=== PATIENT | female | born 2000 | race Caucasian/White ===

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

== ENCOUNTER → 2022-01-02 11:33 | Outpatient (CLI) | payer OTHER, SELFPAY ==
--- NOTE | 2022-01-02 11:52 | XR_ITS ---
FINAL REPORT TECHNIQUE: 50 mL of Isovue-370 were administered intravenously. CLINICAL HISTORY: Pain Rt Side, hydronephrosis, Kidney Stones, 21 wk FINDINGS: Limited examination was obtained after direct discussion with the referring physician. Patient is known to be . Water Trainer view of the abdomen demonstrates a 0.7 cm ovoid density immediately superior to the right L2 transverse process. This focus likely represents an obstructing right UPJ stone. 2 postcontrast images were obtained. Postcontrast images demonstrate moderate to marked right hydronephrosis. Left collecting system appears unremarkable. IMPRESSION: 1. Limited examination demonstrating 7 mm obstructing stone at right UPJ with moderate to marked right hydronephrosis. Authenticated by Fede Whitfield MD on 01/02/2022 02:26:05 PM [facility]
== END ==
PROVIDERS: Visit Provider Nurse Practitioner Obstetrics & Gynecology
DX: N20.0 Calculus of kidney (principal); O26.839 Pregnancy related renal disease, unspecified trimester; Z3A.21 21 weeks gestation of pregnancy
CPT/HCPCS: 74400; Q9967

== ENCOUNTER → 2022-01-13 13:15 | Outpatient (CLI) | payer OTHER, SELFPAY ==
--- NOTE | 2022-01-13 13:26 | XR_ITS ---
FINAL REPORT CLINICAL HISTORY: RT kidney stone, 21 WEEKS FINDINGS: A single view of the abdomen was obtained. There is a nonobstructive bowel gas pattern. There are no abnormally dilated loops of small bowel. There is a moderate-large amount of retained stool. No abnormal calcification is identified. Note is made of a fetus in the pelvis and lower abdomen. IMPRESSION: Nonobstructive bowel gas pattern. Moderate-large amount of retained stool. No abnormal calcification identified. Reviewed, Interpreted and Dictated by Bay Meyer III, MD Transcribed by Monalisa Bettencourt Authenticated by Bay Meyer III, MD on 01/13/2022 02:20:38 PM [facility]
== END ==
PROVIDERS: Visit Provider Urology
DX: N20.0 Calculus of kidney (principal)
CPT/HCPCS: 74018

== ENCOUNTER 2022-02-07 23:27 | Inpatient (IN) | payer OTHER, SELFPAY ==
[2022-02-07 23:30] VITALS: RESP 18
[2022-02-07 23:38] VITALS: BMI 22.5
[2022-02-07 23:42] VITALS: BP 113/62; PULSE 82; RESP 18; TEMP 36.6; O2SAT 98; BMI 22.5
[2022-02-07 23:45] LABS: Microscopic, Urine URINE MICROSCOPIC (MICROSCOPIC)
[2022-02-07 23:47] LABS: Appearance,Urine CLOUDY (Clear); Bilirubin,Urine Negative (Negative); Blood, Urine 2+ (Negative); Color,Urine YELLOW (Yellow); Glucose,Urine (UA) Negative (Negative); Ketones,Urine Negative (Negative); Leukocyte Esterase,Urine TRACE (Negative); Nitrate,Urine Negative (Negative); Protein,Urine TRACE (Negative); Specific Gravity, Urine 1.015 (1.005-1.030); Urobilinogen,Urine 0.2 EU/dl (0.2)
[2022-02-07 23:53] LABS: Coronavirus 19, PCR Not Detected (NotDetected); Influenza A, PCR Not Detected (NotDetected); Influenza B, PCR Not Detected (NotDetected)
[2022-02-07 23:57] LABS: Bacteria,Urine 1+ /lpf; Barbiturates Screen,Urine Negative ng/ml (<200); Squamous Epithelial Cell,Urine Occasional #/hpf (0-5)
[2022-02-07 23:57] LABS: Basophils # 0.1 K/mm3 (0-0.2); Eosinophils % 0.3 % (0.1-12.0); Hemoglobin 9.4 g/dL (12.2-16.2); Lymphocytes # 1.5 K/mm3 (0.7-4.5); Lymphocytes % 12.9 % (10-50); Mean Corpuscular HGB Conc 33.5 g/dL (31.8-35.4); Mean Corpuscular Hemoglobin 29.4 pg (27.0-31.2); Mean Corpuscular Volume 87.9 fl (81-99); Monocytes # 0.6 K/mm3 (0.1-1.0); Monocytes % 5.3 % (1.7-9.3); Neutrophils # 9.2 K/mm3 (1.8-7.8); Neutrophils % 80.4 % (37.0-80.0); Platelet Count 291 K/mm3 (142-424); Red Blood Count 3.21 M/mm3 (4.20-5.40); Red Cell Distribution Width 13.4 % (11.5-17.5); White Blood Count 11.5 K/mm3 (4.5-13.0)
[2022-02-07 23:58] LABS: Amphetamine/Metha Screen,Urine Negative ng/ml (<1000); Benzodiazepines Screen,Urine Negative ng/ml (<200)
[2022-02-07 23:59] LABS: Hematocrit 28.2 % (37.0-47.0)
[2022-02-07 23:59] LABS: Cannabinoid Screen,Urine Positive ng/ml (<50)
[2022-02-08] LABS: Cocaine Screen,Urine Negative ng/ml (<300); Methadone Screen,Urine Negative ng/ml (<300)
[2022-02-08 00:01] LABS: Opiate Screen,Urine Negative ng/ml (<300)
[2022-02-08 00:02] LABS: Phencyclidine Screen,Urine Negative ng/ml (<25)
[2022-02-08 03:44] VITALS: RESP 18
--- NOTE | 2022-02-08 07:04 | US_ITS ---
PROCEDURE INFORMATION: Exam: US Retroperitoneal Complete, Kidneys Aorta IVC. Exam date and time: 02/08/2022 8:19 AM Age: 21 years old Clinical indication: Abdominal pain; Left; ; Patient HX: 26 wks preg with lt flank and back pain-- PT recently passed stone on RT side; Additional info: Renal calculi TECHNIQUE: Imaging protocol: Real-time ultrasound of the retroperitoneum with image documentation. Complete exam. COMPARISON: CR XR KUB 01/13/2022 1:41 PM FINDINGS: Right kidney: Right kidney measures 10.6 x 6.5 x 6.4 cm. Mild right hydronephrosis present without definite calcification noted within the urinary tract. Left kidney: Left kidney measures 12.1 x 5.1 x 6.3 cm. Moderate left hydronephrosis without definite calcification. IMPRESSION: 1. Mild right hydronephrosis present without definite calcification noted within the urinary tract. 2. Moderate left hydronephrosis without definite calcification.
[2022-02-08 07:34] LABS: Basophils # 0.1 K/mm3 (0-0.2); Basophils % 0.3 % (0.1-2.0); Eosinophils % 0.1 % (0.1-12.0); Hematocrit 30.4 % (37.0-47.0); Hemoglobin 10.2 g/dL (12.2-16.2); Mean Corpuscular HGB Conc 33.3 g/dL (31.8-35.4); Mean Corpuscular Hemoglobin 29.7 pg (27.0-31.2); Mean Corpuscular Volume 89.1 fl (81-99); Mean Platelet Volume 7.8 fl (7.4-10.4); Monocytes # 0.5 K/mm3 (0.1-1.0); Monocytes % 3.2 % (1.7-9.3); Neutrophils # 14.7 K/mm3 (1.8-7.8); Neutrophils % 90.4 % (37.0-80.0); Platelet Count 269 K/mm3 (142-424); Red Blood Count 3.42 M/mm3 (4.20-5.40); Red Cell Distribution Width 13.3 % (11.5-17.5); White Blood Count 16.3 K/mm3 (4.5-13.0)
[2022-02-08 07:48] LABS: MANUAL DIFFERENTIAL MANUAL DIFFERENTIAL (MANUAL DIFF)
[2022-02-08 08:13] VITALS: BP 117/70; PULSE 95; RESP 21; TEMP 36.9; O2SAT 96
--- NOTE | 2022-02-08 08:27 | HMH.PHAINT ---
MEDICATION RECONCILIATION COMPLETED ON PATIENT USING EXTERNAL FILL HISTORY FROM PHARMACY. -RAQUEL JERRY, JEANETTED
--- NOTE | 2022-02-08 08:39 | HMH.OBAPHP ---
OB - H&P: HPI Antepartum - History of Present Illness Chief complaint: Left flank pain History of present illness: Ms Marifer Casillas is a 21 yo at 26w4d with complaint of new onset, severe left flank pain. She was a transfer to Dr. Chavez from [facility] ~ 21 weeks. She has history of moderate right hydronephrosis and right nephrolithiasis ~ 22 weeks. She followed up with Dr. Nicholson. Right flank pain resolved after passage of kidney stone. She denies fever/chills, chest pain and shortness of breath. Positive nausea secondary to pain. Denies vaginal bleeding and abdominal pain. Positive movement. - History of Present Narrative: History of nephrolithiasis [facility] History Medical History: Reports:: Anxiety, Depression, Kidney Stones *Have you ever received a pneumonia vaccine?: No *Have you received a flu vaccine this season?: No Laterality Cases: Bilateral: Tonsillectomy Other Surgeries: Yes: No Previous Surgery Amputation: No Fractures: No - *Social History Smoking Status: Current every day smoker Alcohol Intake: never *Occupational Status:: other Housing: house Household Members: family *Travel in the last 8 weeks: None - Psychiatric History Pschychiatric History:: Reports:: Anxiety, Depression Family Hx:: Heart Attack : 1 Para: 0 Review of Systems - Review of Systems Review of systems:: pertinent systems reviewed and negative unless documented below - *Gastrointestinal Comments: nausea secondary to pain - *Genitourinary Comments: + left flank pain Meds Home Medications Medication Instructions Recorded Confirmed Type dicyclomine 10 mg capsule 10 mg PO Q6HP PRN cap 01/02/22 02/08/22 History hydrocodone 5 mg-acetaminophen 325 1 tab PO Q4HP PRN #20 tab 01/09/22 02/08/22 Rx mg tablet ondansetron 4 mg disintegrating 4 mg PO Q6HP PRN tab 01/09/22 02/08/22 History tablet prenat.vits,jennifer,ypd-[id number] 1 tab PO DAILY 01/09/22 02/08/22 History Allergies Allergy/AdvReac Type Severity Reaction Status Date / Time No Known Allergies Allergy Verified 01/23/22 09:34 OB - H&P: Exam - Physical Exam Vital signs: Temp Pulse Resp BP Pulse Ox 98.4 F 95 H 21 117/70 96 02/08/22 08:13 02/08/22 08:13 02/08/22 08:13 02/08/22 08:13 02/08/22 08:13 - Constitutional moderate distress - Routine HEENT Exam Head: Present: normocephalic Eye: Absent: conjunctivae pink ENT: Present: mucous membranes moist - Routine Respiratory Exam Present: CTA bilaterally - Routine Cardiovascular Exam Present: RRR - Routine Abdominal Exam Present: soft. Absent: tenderness, distended Comments: + gravid - Routine Extremities Exam Absent: cyanosis, edema, calf tenderness - Routine Back/Spine/Pelvis Exam Comments: + Left flank tenderness with light palpation - Routine Neurological Exam Present: alert, oriented X3 OB - Results - Labs Labs: Short CBC 02/07/22 02/08/22 Range/Units 23:40 06:54 WBC 11.5 16.3 H D (4.5-13.0) K/mm3 Hgb 9.4 L 10.2 L (12.2-16.2) g/dL Hct 28.2 L 30.4 L (37.0-47.0) % Plt Count 291 269 (142-424) K/mm3 Urine 02/07/22 Range/Units 23:00 Urine Color Yellow (Yellow) Urine Appearance Cloudy (Clear) Urine pH 7.0 (5.0-8.5) Ur Specific [place] 1.015 (1.005-1.030) Urine Protein Trace (Negative) Urine Glucose (UA) Negative (Negative) OB - A/P Antepartum (1) 26 weeks gestation of Status: Acute (2) Tobacco use Status: Acute (3) Left flank pain Status: Acute (4) History of nephrolithiasis Status: Acute - Additional Plan Additional Information:: Admit to L&D for pain control IV Fluids Strainer for toilet CBC UA and urine culture Renal ultrasound IV Dilaudid, will try to transition to Esko Regular diet PO Tylenol and Vistaril PRN Flomax 0.4 mg PO daily FHT q 12 hours
[2022-02-08 12:26] LABS: Lymphocytes % 5 % (10-50); Neutrophils % 95 % (42-76); Platelet Estimate Normal; Total Cells Counted 100
[2022-02-08 12:28] LABS: RBC Morphology Normal
[2022-02-08 20:00] VITALS: BP 124/69; PULSE 104; RESP 20; TEMP 36.8; O2SAT 98
[2022-02-09 04:30] VITALS: BP 122/74; PULSE 88; RESP 18; TEMP 36.7; O2SAT 98
[2022-02-09 07:13] LABS: Hepatitis B Surface Antigen Negative (Negative)
[2022-02-09 07:21] VITALS: BP 106/59; PULSE 104; RESP 16; TEMP 36.8; O2SAT 97
[2022-02-09 08:35] LABS: Rapid Plasma Reagin Ab Titer Non Reactive (NonRea<1:1); Rubella Antibodies, IgG <0.90 index (Immune >0.99)
[2022-02-09 09:11] LABS: HIV Screen 4th Generation wRfx Non Reactive (Non Reactive)
--- NOTE | 2022-02-09 12:39 | HMH.DCSUM ---
General - General Admission date:: 02/07/22 Discharge date: 02/09/22 HPI HPI: Ms Marifer Casillas is a 21 yo at 26w5d admitted to [facility] Labor and Delivery secondary to pain control for severe left flank pain and possible left kidney stone. She denies fever/chills, chest pain and shortness of breath. Admits to nausea secondary to pain. Denies vaginal bleeding and abdominal pain. Reports good movement. She was a transfer to Dr. Chavez from [facility] ~ 21 weeks. She has history of moderate right hydronephrosis and right nephrolithiasis ~ 22 weeks. She followed up with Dr. Nicholson. Right flank pain resolved after passage of kidney stone. Hospital Course Hospital Course: During hospital stay she received IV and PO pain medication, IV fluids and Flomax. Renal ultrasound was performed on 02/08/22. Nipple Threader reported she could not see a stone but gravid uterus was impairing visualization. She also reported moderate left hyronephrosis and hydroureter. Awaiting final report by radiologist. She tolerated regular diet with antiemetics. Heart tones were performed q 12 hours. Today, 02/09/22, patient states pain is manageable with PO medication. She admits pain waxes and wanes. She states she is voiding better since starting the Flomax. She is tolerating regular diet and reports good movement. She denies abdominal pain, leakage of fluid and vaginal bleeding. Denies fever/chills, chest pain and shortness of breath. Discharge patient to home with instructions to follow-up with Dr. Chavez and Dr. Nicholson this week. Prescriptions for [place], Phenergan, Vistaril and Flomax daily escribed. Patient sent home with hat for the toilet, strainer and specimen cup. Encouraged increased water intake and activity as tolerated. Objective Vital signs: Temp Pulse Resp BP Pulse Ox 98.2 F 104 H 16 106/59 L 97 02/09/22 07:21 02/09/22 07:21 02/09/22 07:21 02/09/22 07:21 02/09/22 07:21 no acute distress - *Routine HEENT Exam Head: Present: normocephalic ENT: Present: mucous membranes moist - *Routine Neck Exam Present: full ROM - *Routine Respiratory Exam Present: CTA bilaterally - *Routine Cardiovascular Exam Present: RRR - *Routine Abdominal Exam Present: soft. Absent: tenderness, distended Comments: Gravid FHR 154 - *Routine Extremities Exam Present: full ROM. Absent: cyanosis, clubbing, edema, calf tenderness - *Routine Neurological Exam Present: alert, oriented X3 Results Completed studies during hospitalization [Text1]: Bilateral renal ultrasound Labs on day of discharge: Labs from last 24 hours 02/08/22 06:54 RPR Titer Non reactive Hep Bs Antigen Negative HIV 1&2 Ag/Ab, 4th Gen Non reactive Rubella IgG Antibody <0.90 L DS: Diagnosis - Discharge Diagnosis (1) 26 weeks gestation of Status: Acute (2) Tobacco use Status: Acute (3) Left flank pain Status: Acute (4) History of nephrolithiasis Status: Chronic (5) Hydronephrosis Status: Acute Discharge Plan - Patient Discharge Instructions ACTIVITY: Continue current activity DIET: continue same diet - Follow up Plan Follow up with: Jorge Nicholson MD [Staff Physician] - Rey Chavez MD [Primary Care Provider] - Disposition: Home, Self-Care Condition at discharge:: Stable Home Medications: Home Medications Medication Instructions Recorded Confirmed Type dicyclomine 10 mg capsule 10 mg PO Q6HP PRN cap 01/02/22 02/08/22 History hydrocodone 5 mg-acetaminophen 325 1 tab PO Q4HP PRN #20 tab 01/09/22 02/08/22 Rx mg tablet ondansetron 4 mg disintegrating 4 mg PO Q6HP PRN tab 01/09/22 02/08/22 History tablet prenat.vits,jennifer,nif-[id number] 1 tab PO DAILY 01/09/22 02/08/22 History Hydrocod/Acet 5/325 mg [[place] 1 tab PO Q4HP PRN 4 Days #20 tab 02/09/22 Rx 5/325mg tablet] Promethazine HCl [Phenergan 12.5mg 12.5 mg PO Q6HP PRN #20 tab 02/09/22 Rx tablet
[2022-02-09 13:24] VITALS: BP 105/65; PULSE 100; RESP 16; TEMP 36.7
== END 2022-02-09 13:50 | disposition home or self-care (01) | DRG 832 ==
LOC: OBOUT 23:28 → OB 23:28
PROVIDERS: Admitting Provider Obstetrics & Gynecology; PCP Nurse Practitioner Obstetrics & Gynecology; Visit Provider Obstetrics & Gynecology
DX: O99.891 Other specified diseases and conditions complicating pregnancy; N13.30 Unspecified hydronephrosis; R10.9 Unspecified abdominal pain; Z3A.26 26 weeks gestation of pregnancy
CPT/HCPCS: 36415; 59025; 76770; 80305; 81001; 85007; 85025; 86592; 86762; 86850; 87340; C9803; J2405; U0003; U0005

== ENCOUNTER 2022-02-10 00:29 | Observation (INO) | payer OTHER, SELFPAY ==
[2022-02-10] VITALS (7 sets, daily range): BP systolic 106–127; BP diastolic 65–74; PULSE 100–116; RESP 17–18; TEMP 36.6–37.1; O2SAT 98–100; BMI 22.5
[2022-02-10 01:27] LABS: Microscopic, Urine URINE MICROSCOPIC (MICROSCOPIC)
[2022-02-10 01:30] LABS: Basophils # 0.1 K/mm3 (0-0.2); Basophils % 0.9 % (0.1-2.0); Eosinophils % 0.3 % (0.1-12.0); Hemoglobin 9.7 g/dL (12.2-16.2); Lymphocytes # 1.2 K/mm3 (0.7-4.5); Lymphocytes % 11.2 % (10-50); Mean Corpuscular HGB Conc 33.1 g/dL (31.8-35.4); Mean Corpuscular Hemoglobin 29.3 pg (27.0-31.2); Mean Corpuscular Volume 88.5 fl (81-99); Mean Platelet Volume 7.8 fl (7.4-10.4); Monocytes % 9.5 % (1.7-9.3); Neutrophils # 8.3 K/mm3 (1.8-7.8); Neutrophils % 78.1 % (37.0-80.0); Platelet Count 277 K/mm3 (142-424); Red Blood Count 3.31 M/mm3 (4.20-5.40); Red Cell Distribution Width 13.1 % (11.5-17.5); White Blood Count 10.6 K/mm3 (4.5-13.0)
[2022-02-10 01:32] LABS: Hematocrit 29.3 % (37.0-47.0)
[2022-02-10 01:35] LABS: Appearance,Urine CLEAR (Clear); Bilirubin,Urine Negative (Negative); Blood, Urine 3+ (Negative); Color,Urine YELLOW (Yellow); Glucose,Urine (UA) Negative (Negative); Ketones,Urine 2+ (Negative); Leukocyte Esterase,Urine 1+ (Negative); Nitrate,Urine Negative (Negative); Protein,Urine Negative (Negative); Urobilinogen,Urine 0.2 EU/dl (0.2)
[2022-02-10 01:42] LABS: Amphetamine/Metha Screen,Urine Negative ng/ml (<1000); Benzodiazepines Screen,Urine Negative ng/ml (<200)
[2022-02-10 01:43] LABS: Barbiturates Screen,Urine Negative ng/ml (<200); Cannabinoid Screen,Urine Positive ng/ml (<50)
[2022-02-10 01:44] LABS: Cocaine Screen,Urine Negative ng/ml (<300)
[2022-02-10 01:45] LABS: Methadone Screen,Urine Negative ng/ml (<300)
[2022-02-10 01:46] LABS: Opiate Screen,Urine Positive ng/ml (<300)
[2022-02-10 01:47] LABS: Phencyclidine Screen,Urine Negative ng/ml (<25)
[2022-02-10 01:51] LABS: RBC,Urine 20-50 #/hpf (0-3)
[2022-02-10 02:10] LABS: Coronavirus 19, PCR Not Detected (NotDetected); Influenza A, PCR Not Detected (NotDetected); Influenza B, PCR Not Detected (NotDetected)
--- NOTE | 2022-02-10 07:38 | XR_ITS ---
FINAL REPORT CLINICAL HISTORY: kidney stone..lt side kidney stone..pain 50cc of isovue injected into lt hand saline flush 26 weeks FINDINGS: IVP HISTORY: Left sided flank pain, 26 weeks . COMPARISON: January 02, 2022. FINDINGS: Dimension Mill Worker film demonstrates a 5 mm new radiodensity in the left lateral pelvis. This is worrisome for distal left ureteral stone. Following intravenous injection of 50 ml of Isovue, 10, 15, and 25 minute imaging was performed. There is mild to moderate right hydronephrosis. This appears stable compared to previous. The right ureter is visualized to the lower abdomen and upper pelvis. Findings may be due to compression. The left kidney, left renal collecting system, and left ureter are unopacified on all images. This is most worrisome for ureteral obstruction and is new from previous. IMPRESSION: New 5 mm radiodensity in the left lateral pelvis, worrisome for distal left ureteral stone. Left kidney, left renal collecting system, and left ureter are unopacified on all images. Findings are most worrisome for ureteral obstruction, which is new from prior. Reviewed, Interpreted and Dictated by Bay Meyer III, MD Transcribed by Naomi Daniel PA-C Authenticated by Bay Meyer III, MD on 02/10/2022 09:45:[address] [facility]
--- NOTE | 2022-02-10 10:13 | HMH.HP ---
*Admission Date: 02/09/22 *Chief complaint: 27 weeks , renal colic *History of present illness: She is a 21-year-old 1 para 0 at 26+6 weeks gestational age. She has a history of renal colic in the and was admitted for 48 hours. She then returned last evening after being discharged in the morning with severe left-sided renal colic. Her urinalysis shows 3+ blood. The patient states that she has been passing small bits of sand. [facility] History I have reviewed the patient's past medical history: Yes Medical History: Reports:: Anxiety, Depression, Kidney Stones *Have you ever received a pneumonia vaccine?: No *Have you received a flu vaccine this season?: No Laterality Cases: Bilateral: Tonsillectomy Other Surgeries: Yes: No Previous Surgery. No: Amputation: No Fractures: No - *Social History Smoking Status: Current every day smoker Alcohol Intake: never *Occupational Status:: other Housing: house Household Members: family *Travel in the last 8 weeks: None - Psychiatric History Pschychiatric History:: Reports:: Anxiety, Depression Family Hx:: Heart Attack Para: 0 Review of Systems - Review of Systems Review of systems:: pertinent systems reviewed and negative unless documented below Meds Home Medications Medication Instructions Recorded Confirmed Type dicyclomine 10 mg capsule 10 mg PO Q6HP PRN cap 01/02/22 02/10/22 History prenat.vits,jennifer,qun-humd-ptorg 1 tab PO DAILY 01/09/22 02/10/22 History Hydrocod/Acet 5/325 mg [[place] 1 tab PO Q4HP PRN 4 Days #20 tab 02/09/22 02/10/22 Rx 5/325mg tablet] Promethazine HCl [Phenergan 12.5mg 12.5 mg PO Q6HP PRN #20 tab 02/09/22 02/10/22 Rx tablet] hydrOXYzine pamoate [Vistaril 25mg 25 mg PO Q8HP PRN #20 cap 02/09/22 02/10/22 Rx capsule] Tamsulosin HCl [Flomax 0.4mg 0.4 mg PO DAILY 02/10/22 02/10/22 History capsule] polyethylene glycoL 3350 [Miralax 17 gm PO DAILY 02/10/22 02/10/22 History 17gm Packet] Allergies Allergy/AdvReac Type Severity Reaction Status Date / Time No Known Allergies Allergy Verified 01/23/22 09:34 Exam Vital signs and Labs for Last 24 Hours: Temp Pulse Resp BP Pulse Ox 98.0 F 110 H 17 111/65 98 02/10/22 08:00 02/10/22 08:00 02/10/22 08:00 02/10/22 08:00 02/10/22 08:00 Laboratory Results - last 24 hr 02/10/22 00:54: WBC 10.6 D, RBC 3.31 L, Hgb 9.7 L, Hct 29.3 L, MCV 88.5, MCH 29.3, MCHC 33.1, RDW 13.1, Plt Count 277, MPV 7.8, Neut % (Auto) 78.1, Lymph % (Auto) 11.2, [place] % (Auto) 9.5 H, Eos % (Auto) 0.3, Baso % (Auto) 0.9, Neut # (Auto) 8.3 H, Lymph # (Auto) 1.2, [place] # (Auto) 1.0, Eos # (Auto) 0.0, Baso # (Auto) 0.1 02/10/22 00:54: Urine Opiates Screen Positive H, Urine Methadone Screen Negative, Ur Barbituates Screen Negative, Ur Phencyclidine Scrn Negative, Ur Amphetamines Screen Negative, U Benzodiazepines Scrn Negative, Urine Cocaine Screen Negative, U Marijuana (THC) Screen Positive H 02/10/22 00:54: Urine Color Yellow, Urine Appearance Clear, Urine pH 7.0, Ur Specific [place] 1.010, Urine Protein Negative, Urine Glucose (UA) Negative, Urine Ketones 2+, Urine Blood 3+, Urine Nitrate Negative, Urine Bilirubin Negative, Urine Urobilinogen 0.2, Ur Leukocyte Esterase 1+ A, Urine RBC 20-50, Urine WBC 5-10 02/10/22 01:00: SARS-CoV-2 (PCR) Not detected, Influenza A Untype (PCR) Not detected, Influenza Type B (PCR) Not detected I & O for Last 24 hours: Intake & Output 02/07/22 02/08/22 02/09/22 02/10/22 11:59 11:59 11:59 11:59 Weight 144 lb - Constitutional no acute distress - *Routine HEENT Exam Head: Present: normocephalic Eye: Present: EOMI, PERRL ENT: Present: mucous membranes moist - *Routine Neck Exam Present: supple, full ROM - *Routine Respiratory Exam Absent: accessory muscle use (good air entry bilaterally), wheezes, crackles - *Routine Cardiovascular Exam Present: RRR. Absent: murmur - *Routine Abdominal Exam Present: soft,
--- NOTE | 2022-02-10 12:49 | HMH.CONS ---
*Admission Date: 02/09/22 *Reason for consult:: Left ureteral stone *History of present illness: Patient is a 21-year-old white female who is currently 26 weeks . She began having left-sided flank pain 3 days ago and was admitted to the hospital on Thursday and discharged Thursday but returned Thursday evening with worsening left-sided flank pain. A limited IVP done today shows delayed excretion of contrast on the left side with a calcification in the distal ureter. Looking back at her previous limited IVP and KUB from 1 month previous a left-sided stone was not readily visible. She was having right-sided flank pain last month and she was able to pass that stone. She states she has required pain medicine every 2 hours overnight. At present she looks comfortable. She does have associated nausea. [facility] History Medical History: Reports:: Anxiety, Depression, Kidney Stones *Have you ever received a pneumonia vaccine?: No *Have you received a flu vaccine this season?: No Laterality Cases: Bilateral: Tonsillectomy Other Surgeries: Yes: No Previous Surgery. No: Amputation: No Fractures: No - *Social History Smoking Status: Current every day smoker Alcohol Intake: never *Occupational Status:: other Housing: house Household Members: family *Travel in the last 8 weeks: None - Psychiatric History Pschychiatric History:: Reports:: Anxiety, Depression Family Hx:: Heart Attack Para: 0 Review of Systems - Review of Systems Review of systems:: pertinent systems reviewed and negative unless documented below Meds Home Medications Medication Instructions Recorded Confirmed Type dicyclomine 10 mg capsule 10 mg PO Q6HP PRN cap 01/02/22 02/10/22 History prenat.vits,jennifer,wea-dkrk-lvzio 1 tab PO DAILY 01/09/22 02/10/22 History Hydrocod/Acet 5/325 mg [[place] 1 tab PO Q4HP PRN 4 Days #20 tab 02/09/22 02/10/22 Rx 5/325mg tablet] Promethazine HCl [Phenergan 12.5mg 12.5 mg PO Q6HP PRN #20 tab 02/09/22 02/10/22 Rx tablet] hydrOXYzine pamoate [Vistaril 25mg 25 mg PO Q8HP PRN #20 cap 02/09/22 02/10/22 Rx capsule] Tamsulosin HCl [Flomax 0.4mg 0.4 mg PO DAILY 02/10/22 02/10/22 History capsule] polyethylene glycoL 3350 [Miralax 17 gm PO DAILY 02/10/22 02/10/22 History 17gm Packet] Allergies Allergy/AdvReac Type Severity Reaction Status Date / Time No Known Allergies Allergy Verified 01/23/22 09:34 Exam Vital signs and Labs for Last 24 Hours: Temp Pulse Resp BP Pulse Ox 98.0 F 110 H 17 111/65 98 02/10/22 08:00 02/10/22 08:00 02/10/22 08:00 02/10/22 08:00 02/10/22 08:00 Laboratory Results - last 24 hr 02/10/22 00:54: WBC 10.6 D, RBC 3.31 L, Hgb 9.7 L, Hct 29.3 L, MCV 88.5, MCH 29.3, MCHC 33.1, RDW 13.1, Plt Count 277, MPV 7.8, Neut % (Auto) 78.1, Lymph % (Auto) 11.2, [place] % (Auto) 9.5 H, Eos % (Auto) 0.3, Baso % (Auto) 0.9, Neut # (Auto) 8.3 H, Lymph # (Auto) 1.2, [place] # (Auto) 1.0, Eos # (Auto) 0.0, Baso # (Auto) 0.1 02/10/22 00:54: Urine Opiates Screen Positive H, Urine Methadone Screen Negative, Ur Barbituates Screen Negative, Ur Phencyclidine Scrn Negative, Ur Amphetamines Screen Negative, U Benzodiazepines Scrn Negative, Urine Cocaine Screen Negative, U Marijuana (THC) Screen Positive H 02/10/22 00:54: Urine Color Yellow, Urine Appearance Clear, Urine pH 7.0, Ur Specific [place] 1.010, Urine Protein Negative, Urine Glucose (UA) Negative, Urine Ketones 2+, Urine Blood 3+, Urine Nitrate Negative, Urine Bilirubin Negative, Urine Urobilinogen 0.2, Ur Leukocyte Esterase 1+ A, Urine RBC 20-50, Urine WBC 5-10 02/10/22 01:00: SARS-CoV-2 (PCR) Not detected, Influenza A Untype (PCR) Not detected, Influenza Type B (PCR) Not detected I & O for Last 24 hours: Intake & Output 02/07/22 02/08/22 02/09/22 02/10/22 23:59 23:59 23:59 23:59 Weight 65.317 kg - Constitutional no acute distress - *Routine HEENT Exam Head: Present: normocephalic Eye: Present: EOMI, PERRL ENT
[2022-02-11] VITALS (13 sets, daily range): BP systolic 106–130; BP diastolic 61–85; PULSE 108–125; RESP 17–18; TEMP 36.3–36.9; O2SAT 96–100
--- NOTE | 2022-02-11 | XR_ITS ---
FINAL REPORT CLINICAL HISTORY: STONE EXTRACTION. LIMITED XRAY DUE TO PT BEING PREG. 0.2 FLUORO TIME .92 MGY FINDINGS: Fluoroscopic guidance was provided for the operating services. Two spot films were provided. 0.2 minutes of fluoroscopy time was utilized. IMPRESSION: 0.2 minutes of fluoroscopy time. Reviewed, Interpreted and Dictated by Bay Meyer III, MD Transcribed by Jomar South Authenticated by Bay Meyer III, MD on 02/11/2022 03:54:06 PM [facility]
[2022-02-11 07:29] LABS: Chloride 104 mmol/L (98-107); Sodium 131 mmol/L (136-145)
[2022-02-11 07:30] LABS: Potassium 3.5 mmoL/L (3.5-5.1)
[2022-02-11 07:31] LABS: Basophils # 0.1 K/mm3 (0-0.2); Basophils % 0.6 % (0.1-2.0); Eosinophils # 0.1 K/mm3 (0.0-0.4); Hematocrit 27.4 % (37.0-47.0); Hemoglobin 9.1 g/dL (12.2-16.2); Lymphocytes # 1.4 K/mm3 (0.7-4.5); Lymphocytes % 17.9 % (10-50); Mean Corpuscular HGB Conc 33.3 g/dL (31.8-35.4); Mean Corpuscular Hemoglobin 29.9 pg (27.0-31.2); Mean Corpuscular Volume 89.7 fl (81-99); Monocytes # 0.8 K/mm3 (0.1-1.0); Monocytes % 10.2 % (1.7-9.3); Neutrophils # 5.6 K/mm3 (1.8-7.8); Neutrophils % 70.2 % (37.0-80.0); Platelet Count 252 K/mm3 (142-424); Red Blood Count 3.06 M/mm3 (4.20-5.40); Red Cell Distribution Width 13.3 % (11.5-17.5); White Blood Count 7.9 K/mm3 (4.5-13.0)
[2022-02-11 07:32] LABS: Blood Urea Nitrogen 5 mg/dl (7-17); Creatinine Clearance Estimated 116 mL/min (50-200); Estimated Glomerular Filt Rate 91 ml/min (>60); GFR (African American) 111 ML/MIN (>60)
[2022-02-11 07:33] LABS: Anion Gap 9.5 mEq/L (5-15); Carbon Dioxide 21 mmol/L (22.0-30.0); Glucose 71 mg/dl (74-100)
--- NOTE | 2022-02-11 08:25 | P.PN_ITS ---
Internal Medicine - PN: Subj *Date: 02/11/22 *Time: 08:25 Interval history: She is doing a little better this morning. She had a good night. She still continues to use narcotics every 3 hours. Her IVP yesterday showed a 5 mm distal stone in the left ureter and no opacification of the left ureter consistent with obstruction. She was seen by Dr. Nicholson and he has recommended a ureteroscopy along with stone removal. He also recommended a possible stent. She is we are planning to have her go to the operating room later this morning. Exam Vital signs and Labs for Last 24 Hours: Temp Pulse Resp BP Pulse Ox 98.8 F 108 H 18 127/74 99 02/10/22 16:00 02/10/22 16:00 02/11/22 06:37 02/10/22 16:02/10/22 16:00 Laboratory Results - last 24 hr 02/11/22 06:57: WBC 7.9 D, RBC 3.06 L, Hgb 9.1 L, Hct 27.4 L, MCV 89.7, MCH 29.9, MCHC 33.3, RDW 13.3, Plt Count 252, MPV 8.0, Neut % (Auto) 70.2, Lymph % (Auto) 17.9, Gonzales % (Auto) 10.2 H, Eos % (Auto) 1.0, Baso % (Auto) 0.6, Neut # (Auto) 5.6, Lymph # (Auto) 1.4, Gonzales # (Auto) 0.8, Eos # (Auto) 0.1, Baso # (Auto) 0.1 02/11/22 06:57: Sodium 131 L, Potassium 3.5, Chloride 104, Carbon Dioxide 21 L, Anion Gap 9.5, BUN 5 L, Creatinine 0.80, Estimated Creat Clear 116, Estimated GFR 91, Est GFR ( Amer) 111, Glucose 71 L, Calcium 8.0 L I & O for Last 24 hours: Intake & Output 02/08/22 02/09/22 02/10/22 02/11/22 11:59 11:59 11:59 11:59 Weight 144 lb Microbiology Reports for the Last 24 Hours: Microbiology 02/10/22 00:54 Urine,Clean Catch Urine Culture - Preliminary NO GROWTH AFTER 24 HOURS - Constitutional no acute distress - *Routine HEENT Exam Head: Present: normocephalic Eye: Present: EOMI, PERRL ENT: Present: mucous membranes moist Assessment and Plan (1) Renal colic on left side Status: Acute Category: Medical Code(s): N23 - Unspecified renal colic (2) Hydronephrosis Status: Acute Category: Medical Code(s): N13.30 - Unspecified hydronephrosis (3) Left flank pain Status: Acute Category: Medical Code(s): R10.9 - Unspecified abdominal pain (4) History of nephrolithiasis Status: Chronic Category: Medical Code(s): Z87.442 - Personal history of urinary calculi - Assessment and plan all Dx Assessment and Plan for all problems:: She has obstruction of the left ureter with a possible [address] Nicholson plans to take her to the operating room this morning for stone removal and possible stent placement.
--- NOTE | 2022-02-11 12:38 | HMH.ANESCL ---
[facility] Anesthesia Checklist - Patient Identification Patient Identification: Arm Band - Structural Data Admitted From: Inpatient Planned Operative Procedure/s: Ureteroscopy - NPO Status Verified Time NPO: 00:00 - Airway Assessment C-Spine Mobility Assessed: Yes TMJ Mobility Assessed: Yes Dentition: Good Dentition - Neurological Assessment Level of Consciousness: Awake Hx Seizures: No Numbness or tingling in extremities: No - Anesthesia Plan Anesthesia Risk discussed: Yes Anesthesia Plan: Verified ASA Class: II Anesthesia Type: General [facility] History I have reviewed the patient's past medical history: Yes Medical History: Reports:: Anxiety, Depression, Kidney Stones *Have you ever received a pneumonia vaccine?: No *Have you received a flu vaccine this season?: No Anesthesia experience/problems:: None Laterality Cases: Bilateral: Tonsillectomy Other Surgeries: Yes: No Previous Surgery. No: Amputation: No Fractures: No - *Social History Smoking Status: Current every day smoker Alcohol Intake: never Substance Use Type: denies use *Occupational Status:: other Housing: house Household Members: family *Travel in the last 8 weeks: None - Psychiatric History Pschychiatric History:: Reports:: Anxiety, Depression Family Hx:: Heart Attack Para: 0
--- NOTE | 2022-02-11 12:39 | SUR.PREOP ---
Preop FHR 148 assessed by Karie
--- NOTE | 2022-02-11 14:00 | HMH.OPNOTE ---
Date of procedure: 02/11/22 Pre-op Diagnosis:: Left ureteral stone with obstruction Post-op Diagnosis:: Same Procedure performed:: Left ureteroscopy, laser lithotripsy, stone extraction Surgeon:: Jorge Nicholson MD CIPHER EXPERT:: Zafar Villela Anesthesia: LMA Estimated blood loss (mL): 0 Clinical Note:: 21-year-old white female who is 26 weeks with left renal colic. Patient has a 6 to 7 mm left distal ureteral stone with obstruction. She wished to proceed with stone extraction due to the persistent left colic. Operative findings:: 6 mm stone in the distal left ureter. Stone was broken and the fragments removed. Patient tolerated well no complications. Operative note:: Patient taken to the operating room after informed consent was obtained. She was placed on the operating table in the supine position and general anesthesia administered. heart tones were monitored after induction of anesthesia and were within normal limits. Preoperative antibiotic was given and sequential compression devices placed. Patient then placed into the dorsal lithotomy position and prepped draped in standard surgical fashion. A 22 Clive passed into the urethra and into the bladder. The bladder was examined in a systematic fashion. There were no bladder abnormalities or stones. The ureteral orifices in their normal anatomic position. A guidewire passed into the left ureteral orifice and a spot fluoroscopy was performed that showed a guidewire passed by the stone. We then removed the cystoscope and our semirigid ureteroscope was passed into the bladder and into the left ureter and up to the level of the stone. The stone was grasped with a 1.9 Kinyarwanda stone basket but was unable to be pulled through and narrowing distal to the stone. The stone was then disengaged and our laser fiber was passed up to the stone and a couple of tabs were used on the stone and it broke up very easily as it was very soft. The laser fiber removed and our stone basket was passed back through the scope and stone fragments removed. The ureteroscope then removed and our cystoscope replaced. There appeared to be urine coming from the left ureteral orifice and the stent was deemed not necessary. The bladder emptied and Urojet placed. Patient tolerated well no complications. Condition: stable Disposition: PACU Specimens:: Stone fragments were too small to send Complications:: None
--- NOTE | 2022-02-11 14:36 | PC.NURSE ---
Gema Rees RN from OB at bedside. Obtained FHR 147-148
--- NOTE | 2022-02-11 14:37 | PC.NURSE ---
Pt on bedpan
--- NOTE | 2022-02-11 15:00 | SUR.OPER ---
late entry 1318 H. BLAYNE Rees RN obtained heart tones prior to pt going to sleep. heart tones were heard and with normal limits at that time.
--- NOTE | 2022-02-11 17:24 | HMH.DCSUM ---
General - General Admission date:: 02/10/22 Discharge date: 02/11/22 HPI HPI: She is a 21-year-old 1 para 0 at 26+6 weeks gestational age. She has a history of renal colic in the and was admitted for 48 hours. She then returned last evening after being discharged in the morning with severe left-sided renal colic. Her urinalysis shows 3+ blood. The patient states that she has been passing small bits of sand. Hospital Course Hospital Course: She had an ultrasound that shows some renal dilation on the left side and then we did a 3 shot IVP that showed obstruction of the left ureter with a small stone in the lower pelvis. She was seen by Dr. Nicholson who performed a ureteroscopy with stone removal today. She did not have a stent. She is feeling much better this afternoon and as result of that we are planning to send her home today. Objective Vital signs: Temp Pulse Resp BP Pulse Ox 98.2 F 110 H 18 130/66 100 02/11/22 15:30 02/11/22 16:00 02/11/22 16:00 02/11/22 16:00 02/11/22 16:00 no acute distress - *Routine HEENT Exam Head: Present: normocephalic Eye: Present: EOMI, PERRL ENT: Present: mucous membranes moist Results Labs on day of discharge: Labs from last 24 hours 02/11/22 02/11/22 06:57 06:57 WBC 7.9 D RBC 3.06 L Hgb 9.1 L Hct 27.4 L MCV 89.7 MCH 29.9 MCHC 33.3 RDW 13.3 Plt Count 252 MPV 8.0 Neut % (Auto) 70.2 Lymph % (Auto) 17.9 Al[place] % (Auto) 10.2 H Eos % (Auto) 1.0 Baso % (Auto) 0.6 Neut # (Auto) 5.6 Lymph # (Auto) 1.4 Alpine # (Auto) 0.8 Eos # (Auto) 0.1 Baso # (Auto) 0.1 Sodium 131 L Potassium 3.5 Chloride 104 Carbon Dioxide 21 L Anion Gap 9.5 BUN 5 L Creatinine 0.80 Estimated Creat Clear 116 Estimated GFR 91 Est GFR ( Amer) 111 Glucose 71 L Calcium 8.0 L Preliminary micro results at discharge 02/10/22 00:54 Urine Culture - Preliminary Urine,Clean Catch NO GROWTH AFTER 24 HOURS DS: Diagnosis - Discharge Diagnosis (1) Renal colic on left side Status: Acute (2) Hydronephrosis Status: Acute (3) Left flank pain Status: Acute (4) History of nephrolithiasis Status: Chronic Discharge Plan - Patient Discharge Instructions ACTIVITY: No heavy lifting DIET: continue same diet - Follow up Plan Disposition: Home, Self-Care Condition at discharge:: Improved Home Medications: Home Medications Medication Instructions Recorded Confirmed Type dicyclomine 10 mg capsule 10 mg PO Q6HP PRN cap 01/02/22 02/10/22 History prenat.vits,jennifer,ydy-apqi-kprgy 1 tab PO DAILY 01/09/22 02/10/22 History Hydrocod/Acet 5/325 mg [[place] 1 tab PO Q4HP PRN 4 Days #20 tab 02/09/22 02/10/22 Rx 5/325mg tablet] Promethazine HCl [Phenergan 12.5mg 12.5 mg PO Q6HP PRN #20 tab 02/09/22 02/10/22 Rx tablet] hydrOXYzine pamoate [Vistaril 25mg 25 mg PO Q8HP PRN #20 cap 02/09/22 02/10/22 Rx capsule] Tamsulosin HCl [Flomax 0.4mg 0.4 mg PO DAILY 02/10/22 02/10/22 History capsule] polyethylene glycoL 3350 [Miralax 17 gm PO DAILY 02/10/22 02/10/22 History 17gm Packet] Prescriptions/Medication Reconciliation: Continued dicyclomine 10 mg capsule 10 mg PO Q6HP PRN cap PRN Reason: Muscle Spasm prenat.vits,jennifer,yxp-aepp-zlvfr 1 tab PO DAILY Hydrocod/Acet 5/325 mg [[place] 5/325mg tablet] 1 tab PO Q4HP PRN 4 Days #20 tab PRN Reason: Moderate To Severe Pain Promethazine HCl [Phenergan 12.5mg tablet] 12.5 mg PO Q6HP PRN #20 tab PRN Reason: Nausea hydrOXYzine pamoate [Vistaril 25mg capsule] 25 mg PO Q8HP PRN #20 cap PRN Reason: Mild Pain Tamsulosin HCl [Flomax 0.4mg capsule] 0.4 mg PO DAILY polyethylene glycoL 3350 [Miralax 17gm Packet] 17 gm PO DAILY - Problem Reconciliation Problems Reviewed?: Yes
--- NOTE | 2022-02-12 07:10 | HMH.ANESII ---
[facility] Anesthesia Record Part II Discharge Time: 14:12 Destination: Obstetric PACU nurse assessment reviewed?: Yes Patient Condition:: Good Anesthesia Complications:: None Swallowing reflex intact?: Yes Cyanosis?: No Blood Pressure: 130/74 Pulse Rate: 117 Temperature: 98.2 F Mental Status: Alert & Oriented Pain level:: 0 Nausea and/or vomitting:: None Intake, IV Amount: 0
[2022-02-12 07:11] VITALS: BP 130/74; PULSE 117; TEMP 36.8
--- NOTE | 2022-02-12 07:12 | HMH.ANESI ---
[facility] Anesthesia Record Part I Intake, IV Amount: 500 Estimated blood loss (mL): 0 Urine output (mL): 0 Blood Pressure: 126/85 SaO2: 96 Pulse Rate: 120 Respiratory Rate: 16 Temperature: 97.3 F Patient is:: Awake Stable to PACU at:: 13:56
[2022-02-12 07:13] VITALS: BP 126/85; PULSE 120; RESP 16; TEMP 36.3; O2SAT 96
== END 2022-02-11 17:45 | disposition home or self-care (01) ==
PROVIDERS: Urology; Admitting Provider Obstetrics & Gynecology; Visit Provider Nurse Practitioner Obstetrics & Gynecology
PROC: (CPT 52352; principal; 2022-02-11 12:45)
DX: O99.891 Other specified diseases and conditions complicating pregnancy (principal); N13.30 Unspecified hydronephrosis; N13.2 Hydronephrosis with renal and ureteral calculous obstruction; Z3A.26 26 weeks gestation of pregnancy; Z20.822 Contact with and (suspected) exposure to COVID-19
CPT/HCPCS: 52352; 52353; 36415; 74018; 74400; 76000; 80048; 80305; 81001; 85025; 87086; C9803; G0378; Q9967; U0003; U0005

== ENCOUNTER → 2022-02-22 10:32 | Outpatient (CLI) | payer OTHER, SELFPAY ==
[2022-02-22 11:03] LABS: Glucose,Fasting 90 mg/dl (74-100)
[2022-02-22 13:00] LABS: Glucose 1 Hour 120 mg/dL (74-100)
== END ==
PROVIDERS: Visit Provider Nurse Practitioner Obstetrics & Gynecology
DX: Z34.90 Encounter for supervision of normal pregnancy, unspecified, unspecified trimester (principal)
CPT/HCPCS: 36415; 82951

== ENCOUNTER → 2022-03-17 13:05 | Outpatient (CLI) | payer OTHER, SELFPAY ==
--- NOTE | 2022-03-17 13:09 | US_ITS ---
FINAL REPORT CLINICAL HISTORY: SGA FINDINGS: There is a single live intrauterine gestation. Presentation is cephalic. Placenta is anterior, high, grade 2. movements and practice breathing is noted. Heart rate is 150 beats per minute. AMNIOTIC FLUID: Appropriate amount. IRMA: 12.56 cm MEASUREMENTS: ULTRASOUND AGE: 31 weeks 6 days. GESTATION AGE: 31 weeks 6 days. ESTIMATED WEIGHT: 1789 g GROWTH PERCENTILE: 29% BPD: 7.9 cm corresponding with 31 weeks 6 days. OFD: 10.3 cm corresponding with 32 weeks 0 days. HC: 28.8 cm corresponding with 31 weeks 6 days. AC: 27.3 cm corresponding with 31 weeks 3 days. FL: 6.1 cm corresponding with 31 weeks 6 days. HC/AC: 1.06 CI: 77% FL/BPD: 77% FL/AC: 22% BIOPHYSICAL PROFILE Breathin/2 Movement: 2/2 Tone: 2/2 Fluid volume: 2/2 Total: 05/19 IMPRESSION: Single living IUP with an ultrasound age of 31 weeks 6 days. IRMA of 12.56 cm BPP: 05/19 Reviewed, Interpreted and Dictated by Bay Meyer III, MD Transcribed by Monalisa Bettencourt Authenticated and [facility]
== END ==
PROVIDERS: Visit Provider Nurse Practitioner Obstetrics & Gynecology
DX: O36.5990 Maternal care for other known or suspected poor fetal growth, unspecified trimester, not applicable or unspecified (principal)
CPT/HCPCS: 76816; 76819; 76820

== ENCOUNTER → 2022-04-18 06:39 | Outpatient (CLI) | payer OTHER, SELFPAY | PROVIDERS: Visit Provider Obstetrics & Gynecology | DX: Z34.90 Encounter for supervision of normal pregnancy, unspecified, unspecified trimester (principal) | CPT/HCPCS: 86403 ==

== ENCOUNTER 2022-05-09 22:23 | Inpatient (IN) | payer OTHER, SELFPAY ==
[2022-05-09 22:06] VITALS: BMI 26.9
[2022-05-09 22:48] LABS: Basophils # 0.1 K/mm3 (0-0.2); Basophils % 0.3 % (0.1-2.0); Eosinophils % 0.1 % (0.1-12.0); Hematocrit 33.7 % (37.0-47.0); Hemoglobin 10.6 g/dL (12.2-16.2); Lymphocytes # 1.2 K/mm3 (0.7-4.5); Lymphocytes % 7.4 % (10-50); Mean Corpuscular HGB Conc 31.4 g/dL (31.8-35.4); Mean Corpuscular Hemoglobin 24.7 pg (27.0-31.2); Mean Corpuscular Volume 78.7 fl (81-99); Mean Platelet Volume 8.8 fl (7.4-10.4); Monocytes # 0.8 K/mm3 (0.1-1.0); Monocytes % 5.2 % (1.7-9.3); Neutrophils # 13.6 K/mm3 (1.8-7.8); Platelet Count 387 K/mm3 (142-424); Red Blood Count 4.27 M/mm3 (4.20-5.40); Red Cell Distribution Width 15.4 % (11.5-17.5); White Blood Count 15.6 K/mm3 (4.5-13.0)
[2022-05-09 23:09] LABS: Coronavirus 19, PCR Not Detected (NotDetected); Influenza A, PCR Not Detected (NotDetected); Influenza B, PCR Not Detected (NotDetected)
[2022-05-09 23:16] LABS: MANUAL DIFFERENTIAL MANUAL DIFFERENTIAL (MANUAL DIFF)
[2022-05-09 23:32] LABS: Anisocytosis 1+; Hypochromasia 1+; Lymphocytes % 2 % (10-50); Microcytosis 2+; Monocytes % 1 % (2-9); Neutrophils % 86 % (42-76); Platelet Estimate Normal; Total Cells Counted 100
[2022-05-09 23:34] LABS: Microscopic, Urine URINE MICROSCOPIC (MICROSCOPIC)
[2022-05-09 23:37] LABS: Appearance,Urine CLEAR (Clear); Bilirubin,Urine Negative (Negative); Blood, Urine Negative (Negative); Color,Urine YELLOW (Yellow); Glucose,Urine (UA) Negative (Negative); Ketones,Urine 3+ (Negative); Leukocyte Esterase,Urine TRACE (Negative); Nitrate,Urine Negative (Negative); Protein,Urine 1+ (Negative); Specific Gravity, Urine >= 1.030 (1.005-1.030)
[2022-05-09 23:48] LABS: Bacteria,Urine Trace /lpf; Benzodiazepines Screen,Urine Negative ng/ml (<200)
[2022-05-09 23:49] LABS: Amphetamine/Metha Screen,Urine Negative ng/ml (<1000)
[2022-05-09 23:50] LABS: Barbiturates Screen,Urine Negative ng/ml (<200); Cannabinoid Screen,Urine Negative ng/ml (<50)
[2022-05-09 23:51] LABS: Cocaine Screen,Urine Negative ng/ml (<300)
[2022-05-09 23:52] LABS: Methadone Screen,Urine Negative ng/ml (<300); Opiate Screen,Urine Negative ng/ml (<300)
[2022-05-09 23:53] LABS: Phencyclidine Screen,Urine Negative ng/ml (<25)
[2022-05-10 00:11] VITALS: BP 132/87; PULSE 86; RESP 18; TEMP 37; O2SAT 99; BMI 26.9
--- NOTE | 2022-05-10 00:12 | HMH.ANESCL ---
[facility] Anesthesia Checklist - Patient Identification Patient Identification: Arm Band - Structural Data Admitted From: Inpatient Planned Operative Procedure/s: Labor epidural Consent for Planned Operative Procedure(s) Verified: Yes - NPO Status Verified Time NPO: 22:00 - Airway Assessment C-Spine Mobility Assessed: Yes TMJ Mobility Assessed: Yes Dentition: Good Dentition - Neurological Assessment Level of Consciousness: Awake Hx Seizures: No Numbness or tingling in extremities: No - Anesthesia Plan Anesthesia Risk discussed: Yes Anesthesia Plan: Verified ASA Class: II Anesthesia Type: Epidural [facility] History I have reviewed the patient's past medical history: Yes Medical History: Reports:: Anxiety, Depression, Kidney Stones Denies:: Seizures *Have you ever received a pneumonia vaccine?: No *Have you received a flu vaccine this season?: No Anesthesia experience/problems:: None Laterality Cases: Bilateral: Tonsillectomy Other Surgeries: Yes: No Previous Surgery. No: Amputation: No Fractures: No - *Social History Smoking Status: Current every day smoker Alcohol Intake: never Alcohol Intake Frequency:: other Substance Use Type: denies use *Occupational Status:: other Housing: house Household Members: family *Travel in the last 8 weeks: None - Psychiatric History Pschychiatric History:: Reports:: Anxiety, Depression Family Hx:: Heart Attack
--- NOTE | 2022-05-10 06:19 | HMH.OBAPHP ---
OB - H&P: HPI Antepartum - History of Present Illness Chief complaint: Contractions History of present illness: She is a 21-year-old 1 now para 0 at 39+ weeks gestational age. She came in having regular contractions. She was found to be 4 to 5 cm dilated. - History of Present Criteria for establishing EDC:: LMP confirmed by 1st trimester US care: good care Ultrasounds: normal 1st trimester US, normal mid trimester US Obstetrical complications: none Medical complications: other Narrative: She has a history of kidney stones throughout the . - Labs Blood type: A (+) positive Rubella: immune RPR/VDRL: nonreactive GBS status: negative HBsAG: negative [facility] History I have reviewed the patient's past medical history: Yes Medical History: Reports:: Anxiety, Depression, Kidney Stones Denies:: Seizures *Have you ever received a pneumonia vaccine?: No *Have you received a flu vaccine this season?: Yes Anesthesia experience/problems:: None Laterality Cases: Bilateral: Tonsillectomy Other Surgeries: Yes: No Previous Surgery. No: Amputation: No Fractures: No - *Social History Smoking Status: Current every day smoker Alcohol Intake: never Alcohol Intake Frequency:: other Substance Use Type: denies use *Occupational Status:: employed Housing: house Household Members: family *Travel in the last 8 weeks: None - Psychiatric History Pschychiatric History:: Reports:: Anxiety, Depression Family Hx:: Heart Attack Para: 0 Review of Systems - Review of Systems Review of systems:: pertinent systems reviewed and negative unless documented below Meds Home Medications Medication Instructions Recorded Confirmed Type prenat.vits,jennifer,bwl-gkdr-ecnrd 1 tab PO DAILY 01/09/22 05/10/22 History Ferrous Sulfate 325 mg PO DAILY 05/10/22 05/10/22 History Allergies Allergy/AdvReac Type Severity Reaction Status Date / Time No Known Allergies Allergy Verified 05/07/22 09:08 OB - H&P: Exam - Physical Exam Vital signs: Temp Pulse Resp BP Pulse Ox 98.6 F 86 18 132/87 99 05/10/22 00:11 05/10/22 00:11 05/10/22 00:11 05/10/22 00:11 05/10/22 00:11 - Constitutional no acute distress - Routine HEENT Exam Head: Present: normocephalic Eye: Present: EOMI, PERRL ENT: Present: mucous membranes moist - Routine Neck Exam Present: supple, full ROM - Routine Respiratory Exam Absent: accessory muscle use (good air entry bilaterally), respiratory distress, wheezes, crackles - Routine Cardiovascular Exam Present: RRR. Absent: murmur - Routine Abdominal Exam Present: soft, normoactive bowel sounds. Absent: tenderness, distended, guarding - Routine Rectal Exam Patient deferred: visual exam, digital exam - Routine Exam Patient deferred: external exam, groin exam, perineal exam - Routine Extremities Exam Present: full ROM. Absent: cyanosis, edema - Routine Skin Exam Present: intact. Absent: cyanosis - Routine Neurological Exam Present: alert, oriented X3 - Routine Psychiatric Exam Present: normal affect OB - Results - Labs Labs: Short CBC 05/09/22 Range/Units 22:31 WBC 15.6 H (4.5-13.0) K/mm3 Hgb 10.6 L (12.2-16.2) g/dL Hct 33.7 L (37.0-47.0) % Plt Count 387 (142-424) K/mm3 Urine 05/09/22 Range/Units 23:30 Urine Color Yellow (Yellow) Urine Appearance Clear (Clear) Urine pH 6.0 (5.0-8.5) Ur Specific Jew[place] >= 1.030 (1.005-1.030) Urine Protein 1+ (Negative) Urine Glucose (UA) Negative (Negative) OB - A/P Antepartum (1) Normal delivery at term Status: Acute (2) History of nephrolithiasis Status: Chronic - Additional Plan Planning to breastfeed?: Yes Plan: expectant management Additional Information:: She is fully dilated now and we expect a vaginal delivery.
--- NOTE | 2022-05-10 06:21 | HMH.LABNOT ---
Labor Note - Subjective: Date: 05/10/22 Time: 06:21 regular contraction - Objective: NST:: Reactive Contractions:: every 2-3 minutes Cervical Dilation:: 9-10 Effacement:: 100% Station: +3 Membranes: spontaneously ruptured - Fetus: Monitoring?: Yes monitoring type:: External - Assessment: Labor progressing?: Yes Cephalopelvic disproportion?: No Patient Problems: All Active Problems Normal delivery at term (Acute) Depression (Acute) Anxiety (Acute) Tobacco use (Acute) History of nephrolithiasis (Chronic) Hydronephrosis (Acute) (Acute) - Plan: Anesthesia for epidural?: Yes Continue to labor down?: Yes Plan for ?: No Continue to monitor?: Yes Start pushing?: Yes Comment:: She is fully dilated. We will go ahead and start pushing.
--- NOTE | 2022-05-10 06:47 | HMH.LABNOT ---
Labor Note - Subjective: Date: 05/10/22 Time: 06:47 regular contraction - Objective: NST:: Reactive Contractions:: every 2-3 minutes Cervical Dilation:: 9-10 Effacement:: 100% Station: +2 Membranes: spontaneously ruptured - Fetus: Monitoring?: Yes monitoring type:: External - Assessment: Labor progressing?: Yes Cephalopelvic disproportion?: No Patient Problems: All Active Problems Normal delivery at term (Acute) Depression (Acute) Anxiety (Acute) Tobacco use (Acute) History of nephrolithiasis (Chronic) Hydronephrosis (Acute) (Acute) - Plan: Anesthesia for epidural?: Yes Continue to labor down?: Yes Plan for ?: No Continue to monitor?: Yes Continue pushing?: Yes Comment:: She has been pushing for about a half an hour. She is bringing the baby's head down. We will continue and expect a vaginal delivery.
--- NOTE | 2022-05-10 07:24 | P.PCN_ITS ---
- Delivery Note Delivery Date:: 05/10/22 Delivery Time:: 07:09 Anesthesia Type: Epidural Was labor medically induced?: No Induction method: none Gestational age (weeks): 39 delivered prior to 39 weeks?: No Justification for early elective delivery:: Active Labor Gender: Male at 1 minute: 8 at 5 minutes: 9 LAC or MLE?: LAC Delivery Procedure:: She is a 21-year-old 1 para 0 at 39+ weeks gestational age. She came in in active labor. Under labor epidural she progressed to full dilation and delivered spontaneously a liveborn male child at 7:09 AM on the morning of May 10, 2022. On deliver the head the anterior shoulder then easily delivered followed by the rest infant's body atraumatically. The baby was vigorous and cried spontaneously. We allowed the cord to continue to pulsate for approximately 1 minute. The oropharynx and nasopharynx were bulb suction. The cord was then doubly clamped and cut and the infant was placed on the mother's abdomen for further care. The nurses assigned Apgars of 8 at 1 minute and 9 at 5 minutes. She had a second-degree perineal laceration that was repaired in the usual fashion with 3-0 Vicryl Rapide suture to the superficial tissues and 2-0 Vicryl suture to the deep tissues of the perineum. She also had a small right labial tear that was reapproximated with a single 3-0 Vicryl Rapide suture. She has a positive blood, she is rubella non-immune and was group B streptococcus negative. Her machine stone polisher apprentice is Dr. Schuster. She had an estimated blood loss of approximately 200 cc. Laceration:: vaginal Placental Delivery Description: Spontaneous
[2022-05-11 07:23] LABS: Hematocrit 25.8 % (37.0-47.0); Hemoglobin 8.3 g/dL (12.2-16.2)
--- NOTE | 2022-05-11 08:06 | PC.NURSE ---
Spoke with [facility] intake, report given regarding Pt. Marifer Casillas tested positive for marijuana on urine drug screens for the dates of 01/02/2022, 01/09/2022, 01/23/2022, 02/20/2022, 03/06/2022. Marifer also tested positive for Morphine on the dates of 01/02/2022, 01/09/2022 and medical records show a prescription for morphine for kidney stones for those dates. Marifer had a negative urine drug screen on admission of 05/09/2022. Her son born on 05/10/2022, Karely Arrieta had a negative urine drug screen on 05/10/2022. received.
--- NOTE | 2022-05-11 09:51 | HMH.ACPN2 ---
Internal Medicine - PN: Subj *Date: 05/11/22 *Time: 09:51 Interval history: She is doing very well . She is breast-feeding. Her lochia is normal. Exam Vital signs and Labs for Last 24 Hours: Temp Pulse Resp BP Pulse Ox 98.6 F 86 18 132/87 99 05/10/22 00:11 05/10/22 00:11 05/10/22 00:11 05/10/22 00:11 05/10/22 00:11 Laboratory Results - last 24 hr 05/11/22 07:04: Hgb 8.3 L, Hct 25.8 L I & O for Last 24 hours: Intake & Output 05/08/22 05/09/22 05/10/22 05/11/22 11:59 11:59 11:59 11:59 Weight 172 lb - Constitutional no acute distress - *Routine HEENT Exam Head: Present: normocephalic Eye: Present: EOMI, PERRL ENT: Present: mucous membranes moist Assessment and Plan (1) Normal delivery at term Status: Acute Category: Medical Code(s): O80 - Encounter for full-term uncomplicated delivery (2) History of nephrolithiasis Status: Chronic Category: Medical Code(s): Z87.442 - Personal history of urinary calculi (3) Anemia, Status: Acute Category: Medical Code(s): O90.81 - Anemia of the puerperium - Assessment and plan all Dx Assessment and Plan for all problems:: She is doing well. Her hemoglobin is slightly low but she is asymptomatic. She is breast-feeding. We will plan to send her home tomorrow.
--- NOTE | 2022-05-12 08:45 | P.DS_ITS ---
General - General Admission date:: 05/09/22 Discharge date: 05/12/22 HPI - History of Present Illness History of present illness: She is a 21-year-old 1 now para 0 at 39+ weeks gestational age. She came in in active labor. Hospital Course Hospital Course: She progressed under labor epidural to full dilation and delivered spontaneously a liveborn male child at 7:09 AM on the morning of May 10, 2022. The baby weighed 8 pounds 11 ounces and was 19-1/2 inches long. He had Apgars of 8 at 1 minute and 9 at 5 minutes. She had a small second-degree laceration. She has done well and has remained afebrile throughout her hospitalization. She is eating and drinking and ambulating. She is breast- feeding. She has somewhat low hemoglobin but started out low predelivery. She has a positive blood, she is rubella immune and was group B streptococcus negative. She is discharged home to follow-up with me in approximately 2 weeks time. She will continue with her vitamins and iron. She was given the usual instructions with respect to limiting her activity, driving and sexual activity. She was given instructions with respect to perineal care. Her condition on discharge is stable and improved. Rhogam Administration: Not Indicated Objective Vital signs: Temp Pulse Resp BP Pulse Ox 98.6 F 86 18 132/87 99 05/10/22 00:11 05/10/22 00:11 05/10/22 00:11 05/10/22 00:11 05/10/22 00:11 no acute distress - *Routine HEENT Exam Head: Present: normocephalic Eye: Present: EOMI, PERRL ENT: Present: mucous membranes moist DS: Diagnosis - Discharge Diagnosis (1) Normal delivery at term Status: Acute (2) History of nephrolithiasis Status: Chronic (3) Anemia, Status: Acute Discharge Plan - Patient Discharge Instructions ACTIVITY: No heavy lifting DIET: continue same diet Additional Instructions: *Nothing in the vagina for 6 weeks* *No heavy lifting* *No strenuous activity* *No tub baths for 6 weeks* Patient Instructions: Depression, Hemorrhage, DI for Labor and Delivery, Vaginal , DI for Pre-eclampsia, [facility] Post Di scharge Instructions - Follow up Plan Follow up with: Rey Chavez MD [Primary Care Provider] - Disposition: Home, Self-Care Condition at discharge:: Stable Home Medications: Home Medications Medication Instructions Recorded Confirmed Type prenat.vits,jennifer,[id number] 1 tab PO DAILY 01/09/22 05/10/22 History Ferrous Sulfate 325 mg PO DAILY 05/10/22 05/10/22 History Prescriptions/Medication Reconciliation: Continued prenat.vits,jennifer,[id number] 1 tab PO DAILY Ferrous Sulfate 325 mg PO DAILY - Problem Reconciliation Problems Reviewed?: Yes
--- NOTE | 2022-05-12 10:30 | SW/DCPLANNER ---
Addendum entered by [facility] 05/15/22 10:43: Infant cord screen is NEGATIVE. Addendum entered by [facility] 05/12/22 15:35: Per [facility] this case does NOT meet criteria. Addendum entered by [facility] 05/12/22 14:23: [facility] is still reviewing case at this time. I will continue to call and follow up with ID#. Original Note: I received a referral for this patient regarding: positive for THC: 01/02/22, 01/09/22, 01/23/22, 02/07/22, 02/10/22, 02/20/22 and 03/06/22. Patient was also positive for morphine on 01/02/22 and 01/09/22: patient was prescribed this medication due to kidney stones. Patient was negative on 03/31/22 and 05/09/22. Infant urine drug screen was negative at admission. male (Karely Arrieta) was born on [birth year]. Infant's father (Joaquín Arrieta 02/17/98) was present at the time of my visit. Patient, her mother (Brigdi Bettencourt), mother's boyfriend (Nicola Robins), brother and infant will reside at [address] [place] [address] in [place] [address]. Patient's contact number is [phone]. This is patient and Joaquín's first child. Patient is established with [facility] and information has been faxed to [employer]. Patient stated that she has the following items at home: crib, carseat, clothing, diapers and will be breast feeding. The plan for this patient is to discharge home later today. Patient stated that THC helped her with anxiety and morning sickness. OB nurse (Sarika) did make a report to [facility]: ID# [id number]. ID# is still being reviewed this AM: I have informed patient's nurse (Traci).
== END 2022-05-12 16:15 | disposition home or self-care (01) | DRG 807 ==
LOC: OBOUT 22:24 → OB 22:24
PROVIDERS: Admitting Provider Nurse Practitioner Obstetrics & Gynecology; PCP Nurse Practitioner Obstetrics & Gynecology; Visit Provider Nurse Practitioner Obstetrics & Gynecology
DX: O70.1 Second degree perineal laceration during delivery (principal); Z37.0 Single live birth; Z3A.39 39 weeks gestation of pregnancy; O90.81 Anemia of the puerperium; D64.9 Anemia, unspecified
CPT/HCPCS: 59409; 36415; 59025; 80305; 81001; 85007; 85014; 85018; 85025; 86850; 90707; 94761; C9803; G0283; U0003; U0005

== ENCOUNTER → 2023-04-02 15:07 | Outpatient (CLI) | payer OTHER, SELFPAY ==
[2023-04-02 17:07] LABS: HCG Qualitative, Serum Negative (Negative)
[2023-04-04 19:35] LABS: HIV Screen 4th Generation wRfx Non Reactive (Non Reactive); Rapid Plasma Reagin Ab Titer Non Reactive (NonRea<1:1)
[2023-04-05 09:09] LABS: HSV 2 IgG, Type Spec 1.47 index (0.00-0.90)
[2023-04-06 06:08] LABS: Neisseria gonorrhoeae, NAA Negative (Negative)
== END ==
PROVIDERS: Visit Provider Nurse Practitioner Obstetrics & Gynecology
DX: Z72.51 High risk heterosexual behavior (principal); Z11.4 Encounter for screening for human immunodeficiency virus [HIV]
CPT/HCPCS: 36415; 84703; 86593; 86695; 86703; 86790; 87491; 87591; G0432